=== PATIENT | male | born 1970 | race Asian ===

== ENCOUNTER 2020-04-15 12:16 | Outpatient (CLI) | payer OTHER ==
--- NOTE | 2020-04-15 12:48 | RAD ---
EXAM: XR Abdomen 1 View/KUB PROVIDED CLINICAL HISTORY: Kidney stones COMPARISON: 02/12/2020 CT abdomen and pelvis FINDINGS: The abdominal bowel gas pattern is nonspecific. Bilateral nephrolithiasis is redemonstrated, appearin g stable. Calcifications overlying the central low pelvis shown to represent prostate calcifications on prior CT. No additional urinary tract calculi are definitely apparent. The osseous structures demonstrate no acute abnormality. IMPRESSION: Bilateral nephrolithiasis.
== END 2020-04-15 12:17 | disposition home or self-care (01) ==
LOC: BICRAD 12:16
PROVIDERS: ATTEND Urology
DX: N20.0 Calculus of kidney (principal)
CPT/HCPCS: 74018

== ENCOUNTER 2020-05-03 07:31 | Outpatient (CLI) | payer BC ==
[2020-05-03 11:55] LABS: Hemoglobin 13.9 g/dL (14.0-18.0); Mean Corpuscular HGB CONC 32.3 G/DL (32.0-36.0); Mean Corpuscular Hemoglobin 29.3 PG (27.0-33.0); Mean Corpuscular Volume 90.5 fl (80.0-100.0); Mean Platelet Volume 10.9 fl (7.4-10.4); Platelet Count 182 10x3/uL (130-400); RBC Distribution Width 12.8 % (11.5-14.5); Red Blood Cell (RBC) Count 4.75 10x6/uL (4.40-5.80); White Blood Cell (WBC) Count 6.9 10x3/uL (4.5-11.0)
[2020-05-03 11:58] LABS: Anion Gap 11 mmol/L (10-20); BUN (Urea Nitrogen) 16 mg/dL (8.9-20.6); Calc. Creatinine Clearance 0 mL/min (70-130); Calcium 8.6 mg/dL (7.8-10.44); Carbon Dioxide 25 mmol/L (22-29); Chloride 105 mmol/L (98-107); Glucose 93 mg/dL (70-105); Potassium 4.3 mmol/L (3.5-5.1); Sodium 137 mmol/L (136-145)
[2020-05-03 20:23] LABS: SARS-CoV-2 PCR by NAA Not Detected (NotDetected)
--- NOTE | 2020-05-06 10:50 | EKG ---
Test Reason : PREOP Blood Pressure : / mmHG Vent. Rate : 072 BPM Atrial Rate : 072 BPM P-R Int : 174 ms QRS Dur : 080 ms QT Int : 376 ms P-R-T Axes : 078 029 056 degrees QTc Int : 411 ms Normal sinus rhythm Normal ECG No previous ECGs available Confirmed by RERE JACKSON ([id number]) on 05/06/2020 10:49:56 AM Referred By: HARJEET Confirmed By:RERE JACKSON
== END 2020-05-03 07:32 | disposition home or self-care (01) ==
LOC: LABBT 07:31
PROVIDERS: ATTEND Urology
DX: Z01.818 Encounter for other preprocedural examination (principal); Z20.822 Contact with and (suspected) exposure to COVID-19; Z12.5 Encounter for screening for malignant neoplasm of prostate; N20.0 Calculus of kidney; I25.10 Atherosclerotic heart disease of native coronary artery without angina pectoris; N40.1 Benign prostatic hyperplasia with lower urinary tract symptoms; R35.0 Frequency of micturition; R31.0 Gross hematuria; N32.89 Other specified disorders of bladder
CPT/HCPCS: 80048; 85027; 85610; 85730; 87635; 93005; 93010; U0003; U0005

== ENCOUNTER 2020-05-08 05:59 | Day surgery (SDC) | payer BC ==
[2020-05-07 10:27] VITALS: BMI 27.9
[2020-05-08] MEDS ORDERED: Levofloxacin 500 mg/D5W 100 ml Premix Bag ONE (06:10)
[2020-05-08] MEDS ORDERED: Iothalamate Meglumine 60% 50 ML VIAL FS ONE (06:48)
[2020-05-08] MEDS ORDERED: Midazolam HCl 2 mg/2 ml Vial ONE (07:09)
[2020-05-08] MEDS ORDERED: Fentanyl 100 MCG/2 ML VIAL ONE (07:09)
--- NOTE | 2020-05-08 09:21 | RAD ---
KUB: Date: 05/08/2020 INDICATION: History of preop evaluation. COMPARISON: Prior study dated 04/15/2020. FINDINGS: Bilateral nephrolithiasis is seen. No suspicious calcifications seen along the expected course of the renal collecting systems. Bowel gas pattern is unobstructed. No acute osseous abnormality is evident . IMPRESSION: Stable bilateral nephrolithiasis. POS: BH
--- NOTE | 2020-05-08 09:22 | RAD ---
Exam: Retrograde IVP HISTORY: Stent placement FINDINGS: 8 intraprocedural fluoroscopic images demonstrate retrograde opacification of the left and right intrarenal collecting system. There is a left-sided double-J ureteral stent, appropriately positioned IMPRESSION: Intraprocedure fluoroscopy as above.
[2020-05-08] MEDS ORDERED: PROPOFOL 200 MG/20 ML VIAL ONE (09:24)
[2020-05-08] MEDS ORDERED: Rocuronium Bromide 10 MG/ML (10ML VIAL) ONE (09:24)
[2020-05-08] MEDS ORDERED: PHENYLEPHRINE-NS 100 MCG/ML 10 ML SYRINGE ONE (09:24)
[2020-05-08] MEDS ORDERED: Ondansetron PF 4 MG/2 ML Vial ONE (09:24)
[2020-05-08] MEDS ORDERED: Lidocaine 1% PF 5 ML VIAL ONE (09:24)
[2020-05-08] MEDS ORDERED: ePHEDrine 50 MG/ML VIAL ONE (09:24)
[2020-05-08] MEDS ORDERED: Dexamethasone 20 MG/5 ML VIAL ONE (09:24)
[2020-05-08] MEDS ORDERED: Glycopyrrolate 0.2 MG/ML 5 ML SYRINGE ONE (09:24)
[2020-05-08] MEDS ORDERED: Oxybutynin 5 MG TAB ONE (09:28)
[2020-05-08] MEDS ORDERED: Phenazopyridine HCl 100 MG TAB ONE (09:29)
--- NOTE | 2020-05-08 10:57 | OP ---
DATE OF PROCEDURE: 05/08/2020 PCP: Dr. Markel Uriostegui. PREOPERATIVE DIAGNOSES: 1. A 50-year-old male with history of gross hematuria, positive cytology. imaging, local cystoscopy negative. 2. Bilateral renal calculi: Left lower pole 1.2 cm, left lower to mid pole second stone nidus 1 cm, Hounsfield unit 1200 to 1400(cw very dense stones) 3. Right lower pole 5 to 6 mm renal calculi with no evidence of hydronephrosis bilaterally. 4. BPH, CT prostate volume 64 g with no median lobe. POSTOPERATIVE DIAGNOSES: 1. A 50-year-old male with history of gross hematuria, positive cytology imaging, local cystoscopy negative. 2. Bilateral renal calculi: Left lower pole 1.2 cm, left lower to mid pole second stone nidus 1 cm, Hounsfield unit 1200 to 1400. 3. Right lower pole 5 to 6 mm renal calculi with no evidence of hydronephrosis bilaterally. 4. BPH, CT prostate volume 64 g with no median lobe. PROCEDURES PERFORMED: Cystoscopy, bilateral retrograde pyelogram, dilation of left distal ureter, Left flexible ureteroscopy, pyeloscopy, laser lithotripsy of large dense multiple renal calculi, basket extraction of stone debris, modifier 22 due to density , stone size, 6 x 28 double-J ureteral stent, bilateral retrograde pyelogram. ANESTHESIA: General. COMPLICATIONS: None apparent. SPECIMENS: Multiple left renal calculi for stone analysis. DISPOSITION: To recovery room in stable condition. INTRAOPERATIVE FINDINGS: 1. Bilobar hyperplasia of the prostate, moderate to severe with high median bar, no evidence of median lobe. UOs about 2 to 3 mm proximal to the bladder neck. 2. Cystoscopy with no evidence of bladder lesion or tumor. 3. Bilateral retrograde pyelogram without filling defect. There is peristaltic narrowing at the level of the bifurcation of the iliacs of both ureters, however, no filling defect, prompt excretion of contrast bilaterally. 4. Bilateral renal calculi with large left lower mid pole stone as above. 5. no bladder lesions, Left URS : no lesions seen. INDICATIONS FOR PROCEDURE AND HISTORY: Mr. Schultz is a pleasant 50-year-old male with history of CAD, status post cardiac stent, referred to ca for gross hematuria. This had spontaneously resolved. Workup demonstrated cystoscopy demonstrating no lesions. CT hematuria protocol demonstrates no filling defect, no lesion of concern. We did obtain a cytology as he presented with pink-tinged hematuria, this demonstrated mild atypia, subsequent FISH cytology positive. Surveillance cystoscopy in my office demonstrated no lesion. He presents today for bilateral retrograde, treatment of his left renal calculi. We are surveying the left collecting system, treating his large left renal calculi, retrograde pyelogram will be performed in the contralateral side to rule out any filling defect. Risks and complications of the procedures have been discussed with him in detail including, but not limited to, bleeding, pain, infection, injury to adjacent organs, urosepsis, ureteral or renal or kidney injury, possible secondary procedure. All questions answered to his satisfaction, desired to proceed without reservation. DESCRIPTION OF PROCEDURE: After an informed consent was signed, the patient was taken to the operating room, placed in a dorsal lithotomy position with the genital area prepped and draped in the usual surgical sterile fashion. A 21-Cameroonian cystoscope was utilized for cystoscopy, which demonstrated normal urethra. Prostatic urethra was surveyed, demonstrating bilobar hyperplasia with moderate to severe obstruction, with high median bar. There was no evidence of intravesical median lobe per se. UOs were about 2 to 3 mm proximal to the bladder neck. Bilateral retrograde pyelogram was performed. Right retrograde pyelogram was performed first with an open-ended catheter. There was no evidence of filling defect. Prompt excretion of contrast noted. At the level of the mid ureter, on both sides, as the ureters crossing the iliacs, there was some peristaltic narrowing; however, no stricture, no delayed excretion is noted. No filling defect was appreciated. At this time, we performed the left retrograde as above, and 0.35 Sensor wire was placed into the left upper pole. Using a [employer] 4 cm 12-Cameroonian balloon dilator, we dilated the intramural ureter with ease. Subsequently, a 10-Cameroonian dual-lumen access sheath was passed to the level of the proximal ureter and a 2nd Super Stiff wire was placed into the left upper pole. With the dual-lumen access sheath removed, a 12/14-Cam[place]onian navigator was placed without significant issues to the level of the proximal ureter. A flexible ureteroscope was then advanced. Surveying of the collecting system demonstrated no evidence of papillary lesion of concern. There was a large stone in the left mid lower pole, left lower pole. The lower pole stone was challenging to treat due to acute infundibular angle, less than or about 45 degrees. We laser lithotripsied both stones using 273 to 200 micron laser fiber at 1.6 joules. The stone was very dense in nature. It did not dust, but it broke up into multiple tiny fragments. The left lower pole stone was very challenging to engage due to the acute infundibular angle, it was fragmented. However, residual stone had to be retrieved and placed into the mid pole for appropriate engagement of the laser fiber. Laser lithotripsy of all stone fragments was performed appropriately, using a Zero Tip Nitinol basket, we basket extracted all stone debris amendable to be basket extracted atraumatically. At the end of the procedure, what remained were minute fragmented debris dustlike that we could not basket extract, given the small nature. I anticipate that he will pass the tiny dustlike stone debris. The ureter was surveyed, demonstrating no evidence of ureteral mucosa trauma nor stone nidus of concern. A 6 x 28 double-J ureteral stent was passed without difficulty over the guidewire and subsequently all wires were accounted for. The stent was confirmed to be in proper location on fluoroscopy on cystoscopic view, there was subtrigonal elevation of the prostate, in which the trigone was elevated due to BPH component. The bladder was completely emptied and he tolerated the procedure well. He will follow up with me on May for cysto, stent pull. He is to obtain a KUB one day prior, if there is no gross stone debris of concern in the course of the ureter, we will remove the stent. At a later date, we will survey his right collecting system and treat his right lower pole stone. Job ID: [id number] [facility]
== END 2020-05-08 12:00 | disposition home or self-care (01) ==
LOC: SDC 05:59
PROVIDERS: ATTEND Urology
PROC: 0TC48ZZ Extirpation of Matter from Left Kidney Pelvis, Via Natural or Artificial Opening Endoscopic (ICD-10-PCS; principal; 2020-05-08)
PROC: 0T778DZ Dilation of Left Ureter with Intraluminal Device, Via Natural or Artificial Opening Endoscopic (ICD-10-PCS; principal; 2020-05-08)
DX: N20.0 Calculus of kidney (principal); N40.1 Benign prostatic hyperplasia with lower urinary tract symptoms; R35.0 Frequency of micturition; N32.89 Other specified disorders of bladder; R31.0 Gross hematuria; I25.10 Atherosclerotic heart disease of native coronary artery without angina pectoris; E78.00 Pure hypercholesterolemia, unspecified; I10 Essential (primary) hypertension; Z95.5 Presence of coronary angioplasty implant and graft; Z79.82 Long term (current) use of aspirin; Z79.899 Other long term (current) drug therapy
CPT/HCPCS: 74018; 74420; 82365; 88300; J1100; J1956; J2250; J2405; J2704; J3010; J3490

== ENCOUNTER 2020-05-22 09:02 | Outpatient (CLI) | payer BC ==
--- NOTE | 2020-05-22 11:01 | RAD ---
SUPINE ABDOMEN: INDICATION: Renal calculi. COMPARISON: 05/08/2020. FINDINGS: A left ureteral stent is now in place. The calcifications that were seen overlying the left on the p rior study are not apparent today. A small calcific density overlying the right renal outline is unc hanged. Bowel gas pattern unremarkable. IMPRESSION: Left ureteral stent now noted. No evidence of left urinary tract calcification. POS: OFF
== END 2020-05-22 09:03 | disposition home or self-care (01) ==
LOC: BICRAD 09:02
PROVIDERS: ATTEND Urology
DX: N20.0 Calculus of kidney (principal); Z96.0 Presence of urogenital implants
CPT/HCPCS: 74018

== ENCOUNTER 2020-08-30 09:21 | Outpatient (CLI) | payer BC ==
[2020-08-30 11:14] LABS: Bilirubin Neg (Negative); Blood, Urine 10 (Negative); Clarity Clear (Clear); Glucose, Urine (Dipstick) Normal (Negative); Ketone, Urine Negative (Negative); Leukocyte 25 (Negative); Nitrite Negative (Negative); Protein, Urine (Dipstick) 15 mg/dl (Neg-Trace); Specific Gravity, Urine 1.015 (1.002-1.036); Urobilinogen Normal mg/dL (Less than 2); pH, Urine 6.5 (5.0-9.0)
[2020-08-30 11:22] LABS: Bacteria/HPF 1+ HPF (None Seen); RBC/HPF 0-3 HPF (0-3); Squamous Epithelial 0-3 HPF (0-3); WBC/HPF 0-3 HPF (0-3)
[2020-08-30 11:23] LABS: Hemoglobin 13.5 g/dL (13.5-17.5); Mean Corpuscular HGB CONC 32.8 g/dL (32.0-36.0); Mean Corpuscular Hemoglobin 29.3 pg (27.0-33.0); Mean Corpuscular Volume 89.4 fl (81.2-95.1); Mean Platelet Volume 10.8 fl (7.4-10.4); Platelet Count 172 10x3/uL (150-450); RBC Distribution Width 12.8 % (11.5-14.5); Red Blood Cell (RBC) Count 4.61 10x6/uL (4.32-5.72); White Blood Cell (WBC) Count 6.1 10x3/uL (3.5-10.5)
[2020-08-30 11:46] LABS: Anion Gap 13 mmol/L (10-20); BUN (Urea Nitrogen) 14 mg/dL (8.9-20.6); Calc. Creatinine Clearance 0 mL/min (70-130); Carbon Dioxide 25 mmol/L (22-29); Chloride 105 mmol/L (98-107); Glucose 100 mg/dL (70-105); Potassium 4.5 mmol/L (3.5-5.1); Sodium 138 mmol/L (136-145)
[2020-08-30 11:49] LABS: INR-International Normal Ratio 1.1; PTT 29.6 sec (22.0-33.0); Prothrombin Time 11.7 sec (9.5-12.1)
[2020-08-30 17:55] LABS: SARS-CoV-2 PCR by NAA Not Detected (NotDetected)
== END 2020-08-30 09:22 | disposition home or self-care (01) ==
LOC: LABBT 09:21
PROVIDERS: ATTEND Urology
DX: Z01.818 Encounter for other preprocedural examination (principal); Z12.5 Encounter for screening for malignant neoplasm of prostate; N20.0 Calculus of kidney; I25.10 Atherosclerotic heart disease of native coronary artery without angina pectoris; N40.1 Benign prostatic hyperplasia with lower urinary tract symptoms; R35.0 Frequency of micturition; N32.89 Other specified disorders of bladder; R31.0 Gross hematuria; Z20.822 Contact with and (suspected) exposure to COVID-19
CPT/HCPCS: 80048; 81001; 85027; 85610; 85730; 87086; 87635; 93005; 93010; U0003; U0005

== ENCOUNTER 2020-09-04 07:24 | Day surgery (SDC) | payer BC ==
[2020-09-03 10:42] VITALS: BMI 28.7
[2020-09-04] MEDS ORDERED: Levofloxacin 500 mg/D5W 100 ml Premix Bag ONE (08:22)
[2020-09-04] MEDS ORDERED: Iothalamate Meglumine 60% 50 ML VIAL FS ONE (10:07)
[2020-09-04] MEDS ORDERED: Fentanyl 100 MCG/2 ML VIAL ONE (10:15)
[2020-09-04] MEDS ORDERED: Midazolam HCl 2 mg/2 ml Vial ONE (10:15)
[2020-09-04] MEDS ORDERED: Glycopyrrolate 0.2 MG/ML 5 ML SYRINGE ONE (10:23)
[2020-09-04] MEDS ORDERED: PHENYLEPHRINE-NS 100 MCG/ML 10 ML SYRINGE ONE (10:23)
[2020-09-04] MEDS ORDERED: Lidocaine 1% PF 5 ML VIAL ONE (10:23)
[2020-09-04] MEDS ORDERED: Dexamethasone 20 MG/5 ML VIAL ONE (10:23)
[2020-09-04] MEDS ORDERED: ePHEDrine Sulfate 50 MG/10 ML VIAL ONE (10:23)
[2020-09-04] MEDS ORDERED: Rocuronium Bromide 10 MG/ML (10ML VIAL) ONE (10:23)
[2020-09-04] MEDS ORDERED: Ondansetron PF 4 MG/2 ML Vial ONE (10:23)
[2020-09-04] MEDS ORDERED: PROPOFOL 200 MG/20 ML VIAL ONE (10:23)
== END 2020-09-04 13:27 | disposition home or self-care (01) ==
LOC: SDC 07:24
PROVIDERS: ATTEND Urology
PROC: 0T768DZ Dilation of Right Ureter with Intraluminal Device, Via Natural or Artificial Opening Endoscopic (ICD-10-PCS; principal; 2020-09-04)
PROC: 0TC38ZZ Extirpation of Matter from Right Kidney Pelvis, Via Natural or Artificial Opening Endoscopic (ICD-10-PCS; principal; 2020-09-04)
DX: N20.0 Calculus of kidney (principal); N40.1 Benign prostatic hyperplasia with lower urinary tract symptoms; N13.8 Other obstructive and reflux uropathy; R35.0 Frequency of micturition; R31.0 Gross hematuria; I25.10 Atherosclerotic heart disease of native coronary artery without angina pectoris; E78.00 Pure hypercholesterolemia, unspecified; I10 Essential (primary) hypertension; Z79.82 Long term (current) use of aspirin; Z79.899 Other long term (current) drug therapy; Z95.5 Presence of coronary angioplasty implant and graft
CPT/HCPCS: 74018; 74420; J1100; J1956; J2250; J2405; J2704; J3010; Q9961